=== PATIENT | female | born 1985 ===

== ENCOUNTER 2018-05-27 21:29 | Outpatient (REF) | payer SELFPAY ==
[2018-05-30 08:43] LABS: Chlamydia Result Negative; GC Result Negative; Specimen Description URINE
== END 2018-05-27 21:49 ==
LOC: NCHCN 21:29
PROVIDERS: Visit Provider Nurse Practitioner Family
DX: Z11.3 Encounter for screening for infections with a predominantly sexual mode of transmission (principal)
CPT/HCPCS: 87491; 87591